=== PATIENT | male | born 1950 | race Caucasian/White ===

== ENCOUNTER 2016-05-18 19:04 | Emergency (ER) | payer BC, OTHER ==
[2016-05-18 20:30] VITALS: BP 133/69
--- NOTE | 2016-05-18 20:57 | RAD ---
HISTORY: Fall, left shoulder pain, decreased range of motion COMPARISONS: None VIEWS: 3, Frontal internal rotation, external rotation, and outlet views of the left shoulder FINDINGS: BONE DENSITY: Normal. BONES: There is no displaced fracture. JOINTS: There is osteoarthritis of the a.c. and glenohumeral joints ALIGNMENT: There is no dislocation. SOFT TISSUES: Unremarkable. OTHER FINDINGS: None. IMPRESSION: OSTEOARTHRITIS. NO ACUTE OSSEOUS INJURY. IF SYMPTOMS PERSIST, RECOMMEND REPEAT IMAGING.
--- NOTE | 2016-05-18 20:59 | UC ---
Shoulder Pain HPI - HPI Summary HPI Summary: pt presetns c/o left shoulder pain. 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 Pt states that his left shoulder has been "sore and weak" for " a long time" . he reports that his ROM in left shoulder has been limited "for a long time". Pt reports that he slipped today and fell "flat on back" c/o worsening left shoulder pain. Denies hitting his head or LOC - History of Current Complaint Chief Complaint: UCUpperExtremity Stated Complaint: LEFT ARM PAIN Time Seen by Provider: 05/18/16 20:33 Hx Obtained From: Patient Onset/Duration: Gradual Onset, Lasting Weeks, Worse Since - fall today. Timing: Constant Severity Initially: Mild Severity Currently: Moderate Character: Dull, Aching Aggravating Factor(s): Movement Alleviating Factor(s): Rest Associated Signs And Symptoms: Positive: Negative Related History: Dominant Hand Left - Allergies/Home Medications Allergies/Adverse Reactions: Allergies Allergy/AdvReac Type Severity Reaction Status Date / Time No Known Allergies Allergy Verified 05/18/16 20:30 Home Medications: Home Medications Ranitidine TAB (NF) [Zantac TAB (NF)] 150 mg PO DAILY 05/18/16 [History Confirmed 05/18/16] PMH/Surg Hx/FS Hx/Imm Hx Previously Healthy: Yes Cardiovascular History Of: Reports: Cardiac Disorders - [place] , 20 YRS AGO - Surgical History Surgical History: Yes Surgery Procedure, Year, and Place: APPENDECTOMY, SEE ABOVE. - Family History Known Family History: Positive: Cardiac Disease - Social History Occupation: Employed Full-time Alcohol Use: Rare Substance Use Type: None Smoking Status (MU): Never Smoked Tobacco - Immunization History Most Recent Influenza Vaccination: [id number] Review of Systems Constitutional: Negative Skin: Negative Eyes: Negative ENT: Negative Respiratory: Negative Cardiovascular: Negative Gastrointestinal: Negative Genitourinary: Negative Motor: Decreased ROM - left shoulder Neurovascular: Negative Musculoskeletal: Arthralgia, Decreased ROM, Myalgia - left shoulder Neurological: Negative Psychological: Negative All Other Systems Reviewed And Are Negative: Yes Physical Exam Triage Information Reviewed: Yes Appearance: Well-Appearing Vital Signs: Initial Vital Signs Temp 98.9 F 05/18/16 20:25 Pulse 94 05/18/16 20:25 Resp 17 02/18/17 20:25 BP 133/69 05/18/16 20:25 Pulse Ox 99 05/18/16 20:25 Vital Signs Reviewed: Yes Dental: Positive: Gross Decay/Caries @ - multiple Respiratory Exam: Normal Cardiovascular Exam: Normal Musculoskeletal Exam: Other Musculoskeletal: Positive: Strength Limited @ - left shoulder, ROM Limited @ Neurological Exam: Normal Psychological Exam: Normal Skin Exam: Normal Shoulder Course/Dx - Course Course Of Treatment: Pt was unable to left his left upper extremity. I discussed with him that the results of his xray of left shoudler was negative for fracture. Additonally,l I discussed with him the need for further evaluation of his left shoulder and possible rotator cuff injury or tear. Pt verbalized understanding and agreed to plan of care. - Differential Dx/Diagnosis Differential Diagnosis/HQI/PQRI: Bursitis, Dislocation, Fracture (Closed), Rotator Cuff Injury Provider Diagnoses: left shoulder injury/pain. rotator cuff injury possible tear Discharge - Discharge Plan Condition: Stable Disposition: HOME Patient Education Materials: Rotator Cuff Injury (ED), Shoulder Pain (ED) Forms: *Work Release Referrals: Naren Ellis MD [Medical Doctor] - Shari Iglesias PA [Primary Care Provider] - Additional Instructions: Please follow up with your PCP or follow up with the Orthopedic provider that is on the discharge papers.
== END 2016-05-18 21:21 | disposition home or self-care (01) ==
LOC: UCCORT 19:04
DX: S49.92XA Unspecified injury of left shoulder and upper arm, initial encounter (principal); W01.0XXA Fall on same level from slipping, tripping and stumbling without subsequent striking against object, initial encounter; Y93.9 Activity, unspecified; Y92.9 Unspecified place or not applicable; I25.2 Old myocardial infarction
CPT/HCPCS: 99211; G0463

== ENCOUNTER 2016-12-16 11:49 | Emergency (ER) | payer OTHER ==
[2016-12-16 12:14] VITALS: BP 134/74
--- NOTE | 2016-12-16 12:34 | UC ---
Abdominal Pain Male HPI - HPI Summary HPI Summary: sever abdominal pain x 1 day + nausea , no vomiting, no diarrhea or constipation no dysuria - History of Current Complaint Chief Complaint: UCAbdominalPain Stated Complaint: STOMACH TIGHTNESS Time Seen by Provider: 12/16/16 12:08 Hx Obtained From: Patient Onset/Duration: Gradual Onset, Lasting Days - 1, Still Present Timing: Constant Severity Initially: Severe Severity Currently: Severe Location: Diffuse Radiates: No Character: Sharp Aggravating Factor(s):: Nothing Alleviating Factor(s): Nothing Associated Signs And Symptoms: Positive: Nausea. Negative: Diaphoresis, Fever, Cough, Chest Pain, Dizzy, Back Pain, Constipation, Blood in Stool, Urinary Symptoms, Decreased Appetite, Vomiting, Diarrhea, Penile Discharge - Allergies/Home Medications Allergies/Adverse Reactions: Allergies Allergy/AdvReac Type Severity Reaction Status Date / Time No Known Allergies Allergy Verified 12/16/16 12:14 PMH/Surg Hx/FS Hx/Imm Hx Cardiovascular History: Cardiac Disease, Myocardial Infarction - Surgical History Surgical History: Yes Surgery Procedure, Year, and Place: APPENDECTOMY, SEE ABOVE. - Family History Known Family History: Positive: Cardiac Disease - Social History Alcohol Use: None Substance Use Type: None Smoking Status (MU): Never Smoked Tobacco - Immunization History Most Recent Influenza Vaccination: [id number] Review of Systems Constitutional: Fatigue Skin: Negative Eyes: Negative ENT: Negative Cardiovascular: Negative Gastrointestinal: Abdominal Pain, Nausea Is Patient Immunocompromised?: No All Other Systems Reviewed And Are Negative: Yes Physical Exam Triage Information Reviewed: Yes Appearance: Well-Nourished, Ill-Appearing, Pain Distress Vital Signs: Initial Vital Signs Temp 98.8 F 12/16/16 11:55 Pulse 90 12/16/16 11:55 Resp 20 12/16/16 11:55 BP 134/74 12/16/16 11:55 Pulse Ox 100 12/16/16 11:55 Vital Signs Reviewed: Yes Eyes: Positive: Conjunctiva Clear ENT: Positive: Normal ENT inspection, Hearing grossly normal, Pharynx normal Neck: Positive: Supple, Nontender, No Lymphadenopathy Respiratory: Positive: Chest non-tender, Lungs clear, Normal breath sounds Cardiovascular: Positive: RRR, No Murmur, Pulses Normal Abdomen Description: Positive: Soft, Distended, Guarding, Other: - diffuse abdominal tenderness. Negative: CVA Tenderness (R), CVA Tenderness (L) Bowel Sounds: Positive: Present Neurological Exam: Normal Abd Pain Male Course/Dx - Differential Dx/Clinical Impression Provider Diagnoses: abdominal pain Discharge - Discharge Plan Condition: Guarded Disposition: AGAINST MEDICAL ADVICE Patient Education Materials: Abdominal Pain (ED) Referrals: Shari Morrow PA [Primary Care Provider] - Additional Instructions: sever abdominal pain concern about gollbladder pathology, ? small bowel obstruction pt. will go to [facility] ED for eval and tx pt. refused ambulance transfer and signed AMA
== END 2016-12-16 12:31 | disposition left against medical advice (07) ==
LOC: UCCORT 11:49
DX: R10.84 Generalized abdominal pain (principal); R11.0 Nausea; R53.83 Other fatigue; I51.9 Heart disease, unspecified; I25.2 Old myocardial infarction
CPT/HCPCS: 93005; 99212; G0463